=== PATIENT | female | born 1950 | race Caucasian/White ===

== ENCOUNTER → 2023-07-24 07:50 | Outpatient (REF) | payer MEDICARE, SELFPAY ==
--- NOTE | 2023-07-24 08:00 | CA_ITS ---
Transthoracic Echocardiogram Patient (Last, First, Middle): Jasmin Joel, Gender: Female Date of : 1950 Age: 73 Procedure Date: 07/24/2023 Procedure Type: Transthoracic Echocardiogram Location: OP Height: 170.18 cm Weight: 65.32 kg BSA: 1.76 m2 Heart Rate: bpm BP: 125 / 75 mmHg Telephoto Engineer: TANNER Referring MD: Koffi Howell DO Heel Washer Stringing Machine Operator: Yoandy Clay MD Symptoms: R07.9 CHEST PAIN Study Quality: Adequate ECG Rhythm: Sinus Conclusions: - Essentially normal study Findings Left Ventricle Normal left ventricular size, thickness, and systolic function. The visually estimated ejection fraction is between 60-65%. Spectral Doppler is indicative of a normal filling pattern. Peak GLS is -20.4%, within normal limits. Right Ventricle Normal right ventricular cavity size and systolic function. Atria The left atrium is likely dilated. There is no evidence of interatrial shunt. The right atrium is normal in size. Aortic Valve Normal aortic valve structure and function. There is no aortic valve stenosis. There is no aortic valve regurgitation. Mitral Valve Normal mitral valve structure and function. There is trace mitral valve regurgitation. There is no mitral valve stenosis. Pulmonic Valve The pulmonic valve is likely normal. Tricuspid Valve Normal tricuspid valve structure. There is trace tricuspid valve regurgitation. The right ventricular systolic pressure is normal. The right ventricular systolic pressure is 24 mmHg. Normal right atrial pressure. There is no evidence of pulmonary hypertension. Great Vessels All visible segments of the aorta are normal in size. The pulmonary artery was not well visualized. Venous The inferior vena cava is normal in size and collapses greater than 50% with inspiration. Pericardium/Pleural There is no evidence of pericardial effusion. Prior Study Comparison No prior study available for comparison. Measurements 2D Linear Measurements IVSd: 0.92 0.6-0.9/0.6-1.0 cm LVIDd: 4.28 3.9-5.3/4.2-5.9 cm LVIDd Index: 2.43 2.4-3.2/2.2-3.1 cm/m2 LVIDs: 2.33 2.0-3.6 cm LVPWd: 0.81 0.7-1.1 cm LA Diam: 2.70 2.7-3.8/3.0-4.0 cm LAIDs Index: 1.53 1.5-2.3 cm/m2 LV Mass: 144.68 67-162/88-224 g LV Mass Index: 82.20 43-95/49-115 g/m2 LVOT Diam: 1.90 3.0+(-)1.3 cm 2D Systolic Function EF 4C: 61.10 >55% EF 2C: 70.20 >55% EF BiP: 65.40 >55% Mitral Valve MV Pk E: 0.69 MV PK A: 0.70 MV Decel Time: 225.00 E/A: 1.00 E'Lateral: 10.40 E'Medial: 7.29 E/E' Med: 9.50 E/E' Lat: 6.70 PHT: 66.00 MVA PHT: 3.33 Decel Sampson: 3.09 Aortic Valve AoV Pk Kaleb: 1.39 AoV Mn Kaleb: 0.88 AoV VTI: 0.29 AoV Pk Grad: 8.00 Aov Mn Grad: 4.00 SULMA Cont.VTI: 2.42 LVOT LVOT Pk Kaleb: 1.17 LVOT Mn Kaleb: 0.78 LVOT VTI: 0.25 LVOT Pk Grad: 5.00 LVOT Mn Grad: 3.00 LVOT Diam: 1.90 LVOT Area: 2.84 Diastolic Function MV Pk E: 0.69 MV Pk A: 0.70 E/A: 1.00 E'Medial: 7.29 E/E' Med: 9.50 E' Laterial: 10.40 E/E' Lat: 6.70 Right Ventricle TAPSE (mm): 20.00 TVS' Kaleb: 10.60 Tricuspid Valve TR Pk Kaleb: 2.28 TR Pk Grad: 21.00 RA Press: 3.00 RVSP: 24.00 Great Vessels Aorta Sinus of Valsalva: 2.99 2.0-3.[address] Ridge: 2.54 1.7-3.4 cm Ao Asc: 2.80 2.1-3.4 cm Updated in Other Vendor System with Status of Final Yoandy Clay MD electronically signed on 07/24/2023 3:46:09 PM with status of Final
== END ==
LOC: HO.CARD 07:50
PROVIDERS: PCP Hospitalist; Visit Provider Hospitalist
DX: R07.9 Chest pain, unspecified (principal)
CPT/HCPCS: 93306; 93356

== ENCOUNTER → 2023-07-24 08:00 | Outpatient (BNV) | payer MEDICARE, SELFPAY | PROVIDERS: PCP Hospitalist; Visit Provider Internal Medicine Cardiovascular Disease | DX: R07.9 Chest pain, unspecified (principal) | CPT/HCPCS: 93306 ==

== ENCOUNTER 2023-10-26 12:44 | Outpatient (AMB) | payer MEDICARE, SELFPAY ==
--- NOTE | 2023-10-26 12:51 | A.OFFVIS_ITS ---
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 Intake Note: New patient with ekg c/o chest pressure had echo Commissioning Engineer Required: No Allergies No Known Allergies Allergy (Verified 10/26/23 13:05) Medication List - Last Reconciled 10/26/23 by Yoandy Clay MD acetylcysteine (NAC) 1,200 mg PO DAILY ashwagandha root extract mg PO astragalus root mg PO cholecalciferol (vitamin D3) 625 mcg PO QWEEK folic acid 0.8 mg PO DAILY levothyroxine 25 mcg PO DAILY melatonin 3 mg PO BEDTIME PRN multivitamin 1 tab PO DAILY naltrexone mg PO phytonadione (vitamin K1) 100 mcg PO DAILY Saccharomyces boulardii (Probiotic (S.boulardii)) 250 mg PO BID turmeric mg PO vitamin B complex 1 cap PO DAILY HPI HPI Comments History of Present Illness Details Thank you for referring Jasmin in cardiology consultation today for symptoms of chest pain. Despite multiple different vaso vascular question she remains to be a difficult historian. However she says after she got a 2nd booster of COVID in May she started experiencing exertional chest discomfort. First time was when she walked about a mi from her home up inclined where she started noticing pressure/squeezing in his chest from the back of the chest to the front of the chest. She then stopped doing exercise symptoms subsided. Since then she had seen you and there was initial suspicion for pericarditis given her recent COVID vaccination. She was given colchicine, however she seemed to have modified her lifestyle as well and she was not experiencing as much symptoms. Subsequently she continued to have multiple different symptoms including cognitive decline as per her. She keeps going back to a cognitive decline which she says happen after she fell down and had injury to her jaw about 2 years ago. Since then her cognitive dysfunction has gradually got worse. She is got also very anxious. She is after that she was started on SSRI, Lexapro and she started having neurologic side effect. This was then discontinue the knees started noticing over the last 2 weeks having recurrent symptoms of exertional chest pressure. She says she can slowly cl imbed 3 flights of stairs at her home and she would not experience any symptoms but whenever she tries to walk up an incline she would get this squeezing sensation in her chest. She also complains of left-sided thoracic pain which also describes a pressure which she had this morning. EKG done in the office today is within normal limits. Strong family history of premature coronary artery disease in her father who of a myocardial infarction age 51 as well as her paternal grandparents and several of her male relatives. She never has had any other risk factors. She says her lipids are within acceptable limits, do not have a copy of the same. She had an echocardiogram recently which was within normal limits. COUNTS INCLUDE 234 BEDS AT THE [facility] Family History Father CAD (coronary artery disease) Mother HTN (hypertension) Social History Patient Tobacco Use Status: Never used Tobacco Review of Systems Const Denies chills, Denies daytime sleepiness, Denies fatigue, Denies fever(s), Denies frequent falls, Denies poor appetite, Denies snoring, Denies stops breathing during sleep, Denies weakness, Denies weight gain and Denies weight loss Eyes Denies loss of vision ENT Denies dizziness and Denies hearing loss Card Denies chest pain, Denies claudication, Denies leg edema, Denies lightheadedness, Denies palpitations, Denies dyspnea, Denies dyspnea on exertion and Denies orthopnea Resp Denies cough, Denies excessive phlegm production, Denies dyspnea, Denies dyspnea on exertion, Denies snoring and Denies wheezing GI Denies abdominal pain, Denies hematochezia, Denies change in bowel habits, Denies nausea and Denies vomiting Denies urinary frequency and Denies dysuria Musc Denies arthralgias, Denies muscle weakness, Denies numbness and Denies other (frequent falls) Skin/Breast Denies nail changes and Denies rash Neuro Denies Abnormal speech present, Denies dizziness, Denies frequent falls, Denies loss of vision, Denies memory loss, Denies numbness and Denies weakness Psych Denies depression and Denies memory loss Endo Denies fatigue and Denies palpitations Isac/Lymph Reports easy bruising and Reports other (anemia) Aller/Immun Denies wheezing Physical Exam Vital Signs: Last Vital Signs Pulse 63 10/26/23 12:57 BP 110/70 10/26/23 12:57 BMI result Body Mass Index 23.5 Const General: cooperative, comfortable, alert, awake and anxious Nutritional Appearance: average body habitus Orientation/consciousness: patient oriented x3 Limitations: no limitations HEENT Head: Yes normocephalic and Yes atraumatic Neck Neck: Yes trachea midline, Yes supple and Yes no JVD Resp Effort & Inspection: normal respiratory effort Auscultation: clear to auscultation bilaterally Cardio Jugular venous distension: no JVD Palpation: normal PMI Rate: regular rate Rhythm: regular rhythm Heart sounds: S1 normal heart sound present, S2 normal heart sound present, no click, no gallops, no murmurs and no rubs GI Auscultation: normal bowel sounds Skin General skin exam: no rashes or lesions noted Neuro General: patient oriented x3 and no focal motor deficits Speech: No Abnormal speech present Extrem General: Yes no clubbing, cyanosis or edema Psych Appearance: grossly normal Affect: Anxious affect present Office Procedures EKG Details: EKG shows normal sinus rhythm with normal EKG [id number], Complete Assessment & Plan Assessment & Plan (1) Chest pain on exertion: Code(s): R07.9 - Chest pain, unspecified Plan: Patient presents with symptoms of chest pain with exertion which are highly concerning for myocardial ischemia although baseline EKG is within normal limits and recent echocardiogram within normal limits although with risk factors of age and strong family history for premature coronary artery disease. Her lipids as per her within acceptable limits. Advise lipid panel near future. Given her baseline normal EKG inability to exercise I would try to perform a regular treadmill exercise stress test to evaluate for myocardial ischemia. If she has ischemia at low workload, she will require invasive cardiac catheterization this was discussed with her in details. If her stress test is normal at high workload, alternative cause of her chest pain needs to be pursued including anxiety. This was discussed with her. She understands agrees. If her stress test is negative, can pursue coronary calcium score to further assess for presence of coronary atherosclerosis. Management was discussed with her in details. Due to very vague nature of her symptoms, I am not starting any pharmacotherapy as yet unless the stress test is very abnormal. Will follow with her after the above-mentioned test. Thank you for allowing me to partake in the care Orders: Orders CA stress test Today R07.9 - Chest pain, unspecified Lipid Panel Today I25.10 - Atherosclerotic heart disease of [place] coronary artery without angina pectoris, R07.9 - Chest pain, unspecified CT Coronary Calcium Score 3 Weeks R07.9 - Chest pain, unspecified Coding Level of Care Code New Pt Level 4 (23817) Diagnoses Chest pain on exertion R07.9 CPT Codes EKG - CPT: 23634-[id number], Complete ([id number])
[2023-10-26 12:57] VITALS: BP 110/70; PULSE 63; BMI 23.5
== END 2023-10-26 14:11 | disposition home or self-care (01) ==
LOC: HO.HCS 12:45
PROVIDERS: PCP Hospitalist; Visit Provider Internal Medicine Cardiovascular Disease
DX: R07.9 Chest pain, unspecified (principal)
CPT/HCPCS: 93010; 99214

== ENCOUNTER → 2023-10-26 12:44 | Outpatient (BNVA) | payer MEDICARE, SELFPAY | PROVIDERS: PCP Hospitalist; Visit Provider Internal Medicine Cardiovascular Disease | DX: R07.9 Chest pain, unspecified (principal) | CPT/HCPCS: 93005; 99212 ==

== ENCOUNTER → 2023-10-30 10:14 | Outpatient (REF) | payer MEDICARE, SELFPAY ==
--- NOTE | 2023-10-30 10:16 | CA_ITS ---
Acquisition Time: 2023-10-30 10:25:43 Total Exercise Time: 00:07:00 Test Indications: CHEST PAIN Medications: SEE H Protocol: PENELOPE Max HR: 133 BPM 89% of Pred: 149 BPM Max BP: 184/090 mmHG Max Work Load: 8.4 METS Exercise stress test exercise 7 min achieving 90% MPHR with baseline chest pressure 7/10, increased to a 8/10, without arrhythmias, with normotensive response to exercise, with horizontal depressions in leads 2, 3, aVF, V3-V6. Test reviewed with Dr. Lopez. Exercise stress test exercise 7 min of Penelope protocol achieving 90% MPHR, with mild SOB, 7/10 chronic chest pressure at baseline, iincreased to a 8/10, without arrhtyhmiasd, with normotensive response to exercise, with horizontal depressions of 1mm in leads 2, 3, aVF Referred By: Yoandy Clay Overread By: Lynnette Poole
== END ==
LOC: HO.CARD 10:14
PROVIDERS: PCP Hospitalist; Visit Provider Internal Medicine Cardiovascular Disease
DX: R07.9 Chest pain, unspecified (principal)
CPT/HCPCS: 93017

== ENCOUNTER → 2023-10-30 10:16 | Outpatient (BNV) | payer MEDICARE, SELFPAY | PROVIDERS: PCP Hospitalist; Visit Provider Nurse Practitioner | DX: R07.89 Other chest pain (principal) | CPT/HCPCS: 93016; 93018 ==